=== PATIENT | male | born 1955 | race Caucasian/White ===

== ENCOUNTER 2018-03-26 09:25 | Emergency (ER) | payer OTHER ==
[~2018-03-26] VITALS: Ht 180.3 cm; Wt 88.4 kg
[2018-03-26 09:28] VITALS: Ht 180.3 cm; Wt 88.4 kg
[2018-03-26] MEDS ORDERED: KETOROLAC 30 MG INJ IM STA (10:24)
[2018-03-26] MEDS ORDERED: IBUP-1542 PO (11:52)
[2018-03-26] MEDS ORDERED: TRAM50TA2 PO (11:52)
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
[2018-03-26 12:30] VITALS: BP 169/99; PULSE 82; RESP 20
== END 2018-03-26 12:30 | disposition home or self-care (01) ==
LOC: FTE 09:25
DX: M25.511 Pain in right shoulder (principal); F17.210 Nicotine dependence, cigarettes, uncomplicated
CPT/HCPCS: 72100; 73030; 73510; 96372; J1885; Z7502; 73502